=== PATIENT | female | born 1950 ===

== ENCOUNTER 2023-04-24 14:01 | Day surgery (SDC) | payer MEDICARE, OTHER, SELFPAY ==
[2023-04-24 14:26] VITALS: BMI 25.9
[2023-04-24 14:31] VITALS: BP 116/73; PULSE 82; RESP 16; TEMP 36.3; O2SAT 100
[2023-04-24] MEDS: LACTATED RINGERS 1,000 ML 42 ML IV (14:45)
--- NOTE | 2023-04-24 15:39 | PM.HP.1 ---
History of Present Illness History of Present Illness Date Patient Seen: 04/24/23 Chief complaint: Dx Colonoscopy Narrative: Positive Cologuard [facility] Medical History (Updated 04/24/23 @ 14:26 by Zeus Carlton RN) Breast implant capsular contracture Dental infection Surgical History (Updated 04/24/23 @ 14:26 by Zeus Carlton RN) Hx of breast implants, bilateral Social History household members: spouse Smoking Status: Never smoker Meds Home Medications and Allergies Home Medications Medication Instructions Recorded Confirmed Type No Known Home Medications 04/24/23 04/24/23 History Allergies Allergy/AdvReac Type Severity Reaction Status Date / Time clindamycin AdvReac Severe Vomiting Verified 04/24/23 14:23 diazepam AdvReac Severe combative Verified 04/24/23 14:23 lithium AdvReac Severe Panic Verified 04/24/23 14:23 attack Exam Vital Signs (past 8 hours): - 04/24/23 14:31 Temperature 97.3 F L Pulse Rate 82 Respiratory Rate 16 Blood Pressure 116/73 Pulse Oximetry 100 Oxygen Delivery Method Room Air Oxygen Delivery Method Room Air Narrative Exam Narrative: Oropharynx free of lesions Chest clear to auscultation percussion Cardiac exam reveals no S3 or murmur Assessment & Plan Assessment & Plan narrative: Positive Cologuard. Need for colonoscopy. Risks, benefits, alternatives have been explained.
--- NOTE | 2023-04-24 15:40 | PM.OP.COLON ---
Operative Date/Time/Diagnoses Date of procedure: 04/24/23 Pre-op diagnosis: See indication and findings Procedure & Clinicians Study performed: Colonoscopy Indications: Positive Cologuard Surgeon: Kathy Lu Procedure Notes Procedure in detail: After informed consent was obtained the patient was placed in left lateral decubitus position. The video colonoscope was introduced the rectum slowly advanced cecum. Preparation was good. On slow withdrawal mucosa was carefully examined and a total of 3 passes were made. The scope was removed. The patient tolerated procedure well. Preparation was good. Blood loss none Complications none Sedation mac Findings 1. Extensive diverticulosis in the left colon 2. Somewhat nodular IC valve of no clinical consequence 3. Otherwise negative colonoscopy to terminal ileum Should consider possible upper endoscopy to rule out an upper tract source.
[2023-04-24 16:33] VITALS: BP 94/62; PULSE 90; RESP 14; TEMP 36.9; O2SAT 99
[2023-04-24 16:40] VITALS: BP 98/62; PULSE 82; RESP 15; TEMP 36.9; O2SAT 98
[2023-04-24 16:49] VITALS: BP 107/68; PULSE 78; RESP 19; TEMP 36.6; O2SAT 99
[2023-04-24 16:56] VITALS: BP 109/71; PULSE 89; RESP 15; TEMP 36.6; O2SAT 100
== END 2023-04-24 17:13 | disposition home or self-care (01) ==
PROVIDERS: PCP Family Medicine; Referring Provider Internal Medicine Gastroenterology; Visit Provider Internal Medicine Gastroenterology
PROC: 0DJD8ZZ Inspection of Lower Intestinal Tract, Via Natural or Artificial Opening Endoscopic (ICD-10-PCS; CPT 45378; principal; 2023-04-24 15:00)
DX: R19.5 Other fecal abnormalities (principal); K57.90 Diverticulosis of intestine, part unspecified, without perforation or abscess without bleeding
CPT/HCPCS: 45378; J2704

== ENCOUNTER → 2025-05-19 12:58 | Outpatient (CLI) | payer MEDICARE, OTHER, SELFPAY ==
--- NOTE | 2025-05-19 13:00 | DI.MRI.S_ITS ---
MR breast BI wo/w con: 05/19/2025. BI-RADS: 2 CLINICAL: 74-year old female for bilateral diagnostic breast MRI. No personal or first-degree family history of breast cancer. Patient reports bilateral breast pain for the past year. History of saline implants placed in 1995. PRIOR EXAMS Breast MRI 10/30/2018, mammogram and ultrasound 07/11/2018, mammogram 01/21/2017. MRI TECHNIQUE Bilateral breast MRI was performed on a 1.5 [place] magnet using a dedicated breast coil with mild compression. Axial T1 and T2 STIR sequences were obtained. Dynamic contrast enhanced VIBRANT fat-suppressed sequences were obtained. Delayed sagittal high resolution or sagittal reconstructed isotropic sequence was also obtained. Subtraction images and maximum intensity projection images were obtained. The study was evaluated using [employer] software. IV Contrast: 20 ml ProHance. FIBROGLANDULAR TISSUE Bilateral: C. Heterogeneous fibroglandular tissue. BACKGROUND PARENCHYMAL ENHANCEMENT Bilateral: Minimal symmetrical background parenchymal enhancement. BREAST FINDINGS Bilateral: No suspicious mass, suspicious non-mass enhancement, or other concerning finding identified. There are no abnormal axillary or internal mammary lymph nodes. IMPLANT FINDINGS Right: There is a retroglandular implant of uncertain type. This could represent a collapsed single-lumen saline implant with contained fluid in a fibrous capsule. Appearance is similar compared to the 10/30/2018 study. Left: There is a retroglandular single-lumen saline implant that appears intact. Implant shows no significant change in appearance. IMPRESSION: * No evidence of malignancy with benign findings. RECOMMENDATIONS Bilateral * Clinical follow-up is recommended, and further management of focal signs or symptoms should be based on the results of clinical evaluation. If concerning symptoms persist or progress, further clinical evaluation should be considered, and bilateral diagnostic mammogram and ultrasound should be obtained. * Annual screening mammography. * The [employer] recommends screening mammograms every year for women at average risk of breast cancer beginning at age 40. COMMENTS: The imaging literature indicates that a negative contrast breast MRI examination has a high sensitivity and a moderate specificity for detecting and excluding invasive carcinomas to a detection threshold of 3-5 mm; nonetheless, appropriate clinical and mammographic follow-up are recommended. MRI is not sensitive for detecting DCIS (ductal carcinoma in situ) and may not detect large invasive neoplasms that show only minimal enhancement such as mucinous carcinoma. If there are suspicious calcifications or clinically worrisome palpable masses, then biopsy should still be considered. Invasive neoplasms can be hidden by co-existent and benign enhancement caused by mastitis, hormone therapy effects, radiation therapy, , and recent biopsy or surgery. False positive examinations can occur in a number of circumstances, including breasts that have recently been subject to invasive procedures and those that contain atypical ductal hyperplasia, hormonally stimulated glandular tissue, fat necrosis, or radial scars. OVERALL ASSESSMENT CATEGORY BI-RADS-2: Benign. ELECTRONICALLY SIGNED: Francie Granado M.D. on 05/21/2025 at 08:24:40 PM PT Interpreting Station ID: [id number]
== END ==
LOC: MRI 12:58
PROVIDERS: PCP Family Medicine; Referring Provider Family Medicine; Visit Provider Family Medicine
DX: Z98.82 Breast implant status (principal); N64.4 Mastodynia; N63.0 Unspecified lump in unspecified breast
CPT/HCPCS: 77049; A9579